=== PATIENT | male | born 1945 | race Caucasian/White ===

== ENCOUNTER → 2020-07-28 13:18 | Outpatient (BNVA) | payer MEDICARE, SELFPAY | PROVIDERS: PCP Internal Medicine; Visit Provider Urology | DX: N40.1 Benign prostatic hyperplasia with lower urinary tract symptoms (principal); N13.8 Other obstructive and reflux uropathy; N52.9 Male erectile dysfunction, unspecified; Z79.899 Other long term (current) drug therapy | CPT/HCPCS: 51798; 99212 ==

== ENCOUNTER → 2021-07-29 08:37 | Outpatient (BNVA) | payer OTHER, SELFPAY | PROVIDERS: PCP Internal Medicine; Visit Provider Urology ==

== ENCOUNTER → 2022-02-17 09:44 | Outpatient (BNVA) | payer OTHER, SELFPAY | PROVIDERS: PCP Internal Medicine; Visit Provider Internal Medicine Pulmonary Disease | DX: J44.9 Chronic obstructive pulmonary disease, unspecified (principal); J84.112 Idiopathic pulmonary fibrosis | CPT/HCPCS: 99212 ==

== ENCOUNTER 2022-04-05 08:42 | Outpatient (REF) | payer OTHER, SELFPAY ==
--- NOTE | ~2022-04-05 | CT_ITS ---
EXAMINATION: CT CHEST WITHOUT CONTRAST CLINICAL INFORMATION: Idiopathic pulmonary fibrosis. COMPARISON: CT chest 07/09/2019. TECHNIQUE: Multidetector volumetric CT imaging of the chest was done. Axial MIP volume rendering provided. Sagittal and coronal reformatted images were obtained. This CT examination was performed using dose optimization techniques as appropriate, variously including the following: *Automated exposure control *Adjustment of mA and/or kV according to patient size (this includes techniques or standardized protocols for targeted exams where dose is matched to indication/reason for exam; i.e. extremities or head) *Use of iterative reconstruction technique DLP: 235 mGy-cm FINDINGS: TECHNICAL SUPPORT SPECIALIST: Expanded lungs. LUNGS: Hyperinflated lungs with diffuse thickened interstitium and subpleural honeycombing seen in both upper and lower lobes, most prominent in the lower lobes. The honeycombing is approximately 2-3 layers thick suspicious for early interstitial pulmonary fibrotic changes. No acute consolidation, bronchiectasis or bronchial wall thickening is seen. There are no pulmonary nodules, masses or ground-glass attenuation. No acute consolidation is seen either. There are small cystic parenchymal changes scattered throughout both lungs. MEDIASTINUM: The heart size and aorta are of normal caliber. The pulmonary arteries are slightly larger likely secondary to emphysema. The central trachea and bronchi are widely patent. No abnormal size mediastinal or hilar lymph nodes seen. Thyroid lobes are symmetrical and normal. There is a 1.7 cm pretracheal lymph node. The heart size is normal. There are coronary artery calcifications present. There is no pericardial effusion. The left hemidiaphragm is slightly higher than the right. PLEURA: There is no pleural effusion. No pleural mass or thickening. AXILLA: No lymphadenopathy. UPPER ABDOMEN: There is a small 1.1 cm hypodensity seen in left hepatic lobe, likely small cysts. The rest the visualized liver, spleen, pancreas and bilateral adrenal glands are unremarkable. There are no radiopaque gallstones. OSSEOUS STRUCTURES: There is moderate ventral spondylosis seen throughout dorsal spine. No lytic or sclerotic process seen. CT/CT chest wo con IMPRESSION: Diffuse chronic interstitial lung changes unchanged to previous study. The honeycombing in both lower lobes are 2-3 layers thick suspicious for early changes of interstitial pulmonary fibrosis. The pulmonary arteries are slightly enlarged. Correlate with clinical exam. No pulmonary nodule, consolidation or abnormal mediastinal lymphadenopathy seen. Fleischner guidelines were followed.
--- NOTE | 2022-04-05 09:57 | PFT_ITS ---
Forced vital capacity is 70%, FEV1 84%. FEV1/FVC ratio is 87. [id number] 161% and MVV 94%. Total lung capacity 54%. Residual volume 26%. Diffusion capacity is 36% CONCLUSION: Moderately severe restrictive pulmonary disorder. No obstructive airway disorder. Marked decrease in the diffusion capacity, may be due to non-pulmonary factors. For this, clinical correlation is recommended. MD LIANNE Hair/MODL / [id number]
== END 2022-04-05 08:43 | disposition home or self-care (01) ==
LOC: HO.RESP 08:42
PROVIDERS: Visit Provider Internal Medicine Pulmonary Disease
DX: J84.112 Idiopathic pulmonary fibrosis (principal); J44.9 Chronic obstructive pulmonary disease, unspecified; F17.210 Nicotine dependence, cigarettes, uncomplicated; Z57.4 Occupational exposure to toxic agents in agriculture; Z79.899 Other long term (current) drug therapy
CPT/HCPCS: 71250; 94010; 94727; 94729

== ENCOUNTER → 2022-04-24 11:34 | Outpatient (BNVA) | payer OTHER, SELFPAY | PROVIDERS: PCP Internal Medicine; Visit Provider Internal Medicine Pulmonary Disease | DX: J84.112 Idiopathic pulmonary fibrosis (principal); J44.9 Chronic obstructive pulmonary disease, unspecified | CPT/HCPCS: 99212 ==